=== PATIENT | female | born 1945 | race African-American/Black ===

== ENCOUNTER 2024-10-14 11:43 | Inpatient (IN) | payer OTHER ==
[2024-10-14 13:48] VITALS: BMI 21.2
[2024-10-14] MEDS: Senokot S 8.6-50 MG TAB PO PRN (15:20)
[2024-10-14] MEDS: Apixaban 5 MG TAB PO SCH (20:49)
[2024-10-14] MEDS: Bisacodyl 10 MG SUPP PR PRN (20:56)
[2024-10-14] MEDS ORDERED: Mometasone 100 MCG/PUFF (1 INHALER) INH SCH (21:00)
[2024-10-15] MEDS: [UNRECOGNIZED DRUG - OTHER] INH SCH (09:23)
[2024-10-15] MEDS: UMECLIDINIUM INH SCH (09:23)
[2024-10-15] MEDS: VILANTEROL INH SCH (09:23)
[2024-10-15] MEDS: Pantoprazole 40 MG DR.TAB PO SCH (10:34)
[2024-10-15] MEDS: Lansoprazole 3 MG/ML ORAL SUSPENSION PO SCH (10:34)
[2024-10-16] MEDS: Lansoprazole 3 MG/ML ORAL SUSPENSION PO SCH (08:42)
[2024-10-17 05:19] LABS: Hematocrit 27.7 % (36.0-47.0); Hemoglobin 8.7 g/dL (12.0-16.0); MDiff Complete? YES; Mean Corpuscular Hemoglobin 28.3 pg (27.0-31.0); Mean Corpuscular Volume 90.2 fl (78.0-98.0); Platelet Count 260 10x3/uL (130-400); Red Blood Cell (RBC) Count 3.07 mill/uL (4.20-5.40); White Blood Cell (WBC) Count 3.7 10x3/uL (4.8-10.8)
[2024-10-17 05:32] LABS: ALT (SGPT) Less than 4 U/L (Less than 34); AST (SGOT) 12 U/L (11-34); Albumin 1.9 g/dL (3.1-4.5); Alkaline Phosphatase 49 U/L (40-110); Anion Gap 13 mmol/L (10-20); BUN (Urea Nitrogen) 6 mg/dL (9.8-20.1); Bilirubin, Total 0.4 mg/dL (0.3-1.2); Calc. Creatinine Clearance 48 mL/min (70-130); Calcium 8.2 mg/dL (7.8-10.44); Carbon Dioxide 26 mmol/L (23-31); Chloride 102 mmol/L (98-107); Globulin 3.6 g/dL (2.4-3.5); Glucose 86 mg/dL (83-110); Potassium 3.7 mmol/L (3.5-5.1); Sodium 137 mmol/L (136-145)
[2024-10-19] MEDS: Acetaminophen 325 MG TAB PO PRN (17:51)
[2024-10-22] MEDS: Sulfameth/Trimethoprim DS 800-160mg TAB PO SCH (20:29)
[2024-10-24 05:34] LABS: Hematocrit 27.9 % (36.0-47.0); Hemoglobin 8.6 g/dL (12.0-16.0); MDiff Complete? YES; Mean Corpuscular Hemoglobin 28.0 pg (27.0-31.0); Mean Corpuscular Volume 90.5 fl (78.0-98.0); Platelet Count 321 10x3/uL (130-400); Red Blood Cell (RBC) Count 3.08 mill/uL (4.20-5.40); White Blood Cell (WBC) Count 3.6 10x3/uL (4.8-10.8)
[2024-10-26 08:33] VITALS: BMI 21.2
[2024-10-29] MEDS: Sulfameth/Trimethoprim DS 800-160mg TAB PO SCH (09:49)
[2024-10-30 05:14] LABS: Anion Gap 16 mmol/L (10-20); BUN (Urea Nitrogen) 10 mg/dL (9.8-20.1); Calc. Creatinine Clearance 30 mL/min (70-130); Calcium 9.1 mg/dL (7.8-10.44); Carbon Dioxide 22 mmol/L (23-31); Chloride 99 mmol/L (98-107); Glucose 87 mg/dL (83-110); Potassium 4.7 mmol/L (3.5-5.1); Sodium 132 mmol/L (136-145)
[2024-10-30 05:25] LABS: Hematocrit 29.1 % (36.0-47.0); Hemoglobin 9.2 g/dL (12.0-16.0); MDiff Complete? YES; Mean Corpuscular Hemoglobin 28.8 pg (27.0-31.0); Mean Corpuscular Volume 91.2 fl (78.0-98.0); Nucleated RBC (Manual Ct) 1 % (0); Platelet Count 378 10x3/uL (130-400); Red Blood Cell (RBC) Count 3.19 mill/uL (4.20-5.40); White Blood Cell (WBC) Count 3.1 10x3/uL (4.8-10.8)
[2024-10-30] MEDS: HYDROcodone/Acetaminophen 5/325 mg Tablet PO PRN (11:12)
[2024-10-31] MEDS: Sulfameth/Trimethoprim DS 800-160mg TAB PO SCH (20:16)
[2024-11-03 05:04] LABS: Anion Gap 15 mmol/L (10-20); BUN (Urea Nitrogen) 10 mg/dL (9.8-20.1); Calc. Creatinine Clearance 30 mL/min (70-130); Calcium 9.2 mg/dL (7.8-10.44); Carbon Dioxide 22 mmol/L (23-31); Chloride 100 mmol/L (98-107); Glucose 80 mg/dL (83-110); Potassium 4.4 mmol/L (3.5-5.1); Sodium 133 mmol/L (136-145)
[2024-11-03] MEDS: Clindamycin 150 MG CAP PO SCH (12:47)
[2024-11-03] MEDS: Apixaban 2.5 MG TAB PO SCH (20:37)
[2024-11-04] MEDS: Apixaban 5 MG TAB PO SCH (20:48)
[2024-11-06 05:39] LABS: Hematocrit 28.0 % (36.0-47.0); Hemoglobin 9.1 g/dL (12.0-16.0); Mean Corpuscular Hemoglobin 29.5 pg (27.0-31.0); Mean Corpuscular Volume 90.5 fl (78.0-98.0); Platelet Count 359 10x3/uL (130-400); Red Blood Cell (RBC) Count 3.10 mill/uL (4.20-5.40); White Blood Cell (WBC) Count 3.2 10x3/uL (4.8-10.8)
[2024-11-06 05:40] LABS: MDiff Complete? YES
[2024-11-06 16:19] VITALS: BP 109/71; TEMP 97.6
== END 2024-11-06 17:10 | disposition short-term general hospital (02) | DRG 945 ==
LOC: MADMS 13:10
PROVIDERS: ADMIT Family Medicine; ATTEND Family Medicine
PROC: F07Z5ZZ Bed Mobility Treatment (ICD-10-PCS; principal; 2024-10-15)
PROC: F08Z0ZZ Bathing/Showering Techniques Treatment (ICD-10-PCS; 2024-10-15)
DX: R53.81 Other malaise (principal); N39.0 Urinary tract infection, site not specified; I10 Essential (primary) hypertension; Z98.890 Other specified postprocedural states; J44.9 Chronic obstructive pulmonary disease, unspecified; R26.89 Other abnormalities of gait and mobility; M79.89 Other specified soft tissue disorders; N99.89 Other postprocedural complications and disorders of genitourinary system; Z97.8 Presence of other specified devices; Z96.621 Presence of right artificial elbow joint; Z79.01 Long term (current) use of anticoagulants; R33.9 Retention of urine, unspecified; Z22.322 Carrier or suspected carrier of Methicillin resistant Staphylococcus aureus; I95.2 Hypotension due to drugs; Z86.718 Personal history of other venous thrombosis and embolism
CPT/HCPCS: 36415; 80048; 80053; 85025; 86140; 87070; 87077; 87186; 87205

== ENCOUNTER 2024-11-12 15:21 | Inpatient (IN) | payer OTHER ==
[2024-11-12 20:03] VITALS: BMI 19.3
[2024-11-12] MEDS: Mometasone 100 MCG/PUFF (1 INHALER) INH SCH (20:45)
[2024-11-12] MEDS: Apixaban 2.5 MG TAB PO SCH (20:46)
[2024-11-12] MEDS: Sulfameth/Trimethoprim DS 800-160mg TAB PO SCH (21:39)
[2024-11-13 05:37] LABS: ALT (SGPT) 9 U/L (Less than 34); AST (SGOT) 20 U/L (11-34); Albumin 2.7 g/dL (3.1-4.5); Alkaline Phosphatase 54 U/L (40-110); Anion Gap 15 mmol/L (10-20); BUN (Urea Nitrogen) 14 mg/dL (9.8-20.1); Bilirubin, Total 0.2 mg/dL (0.3-1.2); Calc. Creatinine Clearance 28 mL/min (70-130); Calcium 9.2 mg/dL (7.8-10.44); Carbon Dioxide 22 mmol/L (23-31); Chloride 100 mmol/L (98-107); Globulin 3.8 g/dL (2.4-3.5); Glucose 81 mg/dL (83-110); Potassium 4.6 mmol/L (3.5-5.1); Sodium 132 mmol/L (136-145)
[2024-11-13 05:38] LABS: Hematocrit 25.7 % (36.0-47.0); Hemoglobin 8.5 g/dL (12.0-16.0); MDiff Complete? YES; Mean Corpuscular Hemoglobin 30.0 pg (27.0-31.0); Mean Corpuscular Volume 90.5 fl (78.0-98.0); Platelet Count 254 10x3/uL (130-400); Red Blood Cell (RBC) Count 2.83 mill/uL (4.20-5.40); White Blood Cell (WBC) Count 3.6 10x3/uL (4.8-10.8)
[2024-11-13 08:30] VITALS: BMI 19.3
[2024-11-13] MEDS ORDERED: Pantoprazole 40 MG DR.TAB PO SCH (09:00)
[2024-11-13] MEDS: Sulfameth/Trimethoprim DS 800-160mg TAB PO SCH (09:17)
[2024-11-13] MEDS: Apixaban 5 MG TAB PO SCH (09:18)
[2024-11-13] MEDS: Lansoprazole 3 MG/ML ORAL SUSPENSION PO SCH (09:18)
[2024-11-14] MEDS: TRELEGY ELLIPTA INH SCH (08:35)
[2024-11-15] MEDS: Acetaminophen 325 MG TAB PO PRN (20:26)
[2024-11-16] MEDS ORDERED: Senokot S 8.6-50 MG TAB PO PRN (20:53)
[2024-11-16] MEDS: Bisacodyl 10 MG SUPP PR PRN (20:59)
[2024-11-19 06:33] LABS: Hematocrit 26.8 % (36.0-47.0); Hemoglobin 8.4 g/dL (12.0-16.0); Mean Corpuscular Hemoglobin 28.6 pg (27.0-31.0); Mean Corpuscular Volume 90.9 fl (78.0-98.0); Platelet Count 301 10x3/uL (130-400); Red Blood Cell (RBC) Count 2.95 mill/uL (4.20-5.40); White Blood Cell (WBC) Count 3.2 10x3/uL (4.8-10.8)
[2024-11-19 06:43] LABS: Anion Gap 15 mmol/L (10-20); BUN (Urea Nitrogen) 11 mg/dL (9.8-20.1); Calc. Creatinine Clearance 26 mL/min (70-130); Calcium 9.2 mg/dL (7.8-10.44); Carbon Dioxide 21 mmol/L (23-31); Chloride 101 mmol/L (98-107); Glucose 78 mg/dL (83-110); Potassium 4.8 mmol/L (3.5-5.1); Sodium 132 mmol/L (136-145)
[2024-11-19] MEDS: Sodium Bicarbonate Tab 325 MG TAB PO SCH (20:16)
[2024-11-20] MEDS: Ferrous Gluconate 324 MG TAB PO SCH (08:22)
[2024-11-20] MEDS ORDERED: Senokot S 8.6-50 MG TAB PO PRN (14:08)
[2024-11-20] MEDS ORDERED: Milk Of Magnesia 30 ML UDCUP PO PRN (14:09)
[2024-11-20] MEDS: Apixaban 5 MG TAB PO SCH (20:15)
[2024-11-21] MEDS: Magnesium Oxide 400 MG TAB PO SCH (08:23)
[2024-11-22 05:36] LABS: Anion Gap 16 mmol/L (10-20); BUN (Urea Nitrogen) 13 mg/dL (9.8-20.1); Calc. Creatinine Clearance 23 mL/min (70-130); Calcium 9.3 mg/dL (7.8-10.44); Carbon Dioxide 22 mmol/L (23-31); Chloride 98 mmol/L (98-107); Glucose 80 mg/dL (83-110); Potassium 4.6 mmol/L (3.5-5.1); Sodium 131 mmol/L (136-145)
[2024-11-22] MEDS ORDERED: Ferrous Sulfate 325 MG TAB PO SCH (11:00)
[2024-11-22] MEDS: Ferrous Sulfate 300 MG (5 mL) UDCUP PO SCH (11:50)
[2024-11-22 13:57] LABS: Iron 31 ug/dL (50-170); Iron Binding Capacity, Total 199 mcg/dL (265-497)
[2024-11-23] MEDS ORDERED: Ferrous Sulfate 325 MG TAB PO SCH (08:00)
[2024-11-23] MEDS: Ferrous Sulfate 300 MG (5 mL) UDCUP PO SCH (09:02)
[2024-11-24 11:59] VITALS: BP 125/69
[2024-11-24 13:01] VITALS: TEMP 98
== END 2024-11-24 13:01 | disposition home health service (06) | DRG 945 ==
LOC: MADMS 18:19
PROVIDERS: ADMIT Family Medicine; ATTEND Family Medicine
PROC: F07Z9ZZ Gait Training/Functional Ambulation Treatment (ICD-10-PCS; principal; 2024-11-12)
DX: R53.1 Weakness (principal); E87.1 Hypo-osmolality and hyponatremia; G90.50 Complex regional pain syndrome I, unspecified; R26.89 Other abnormalities of gait and mobility; Z96.621 Presence of right artificial elbow joint; D63.1 Anemia in chronic kidney disease; I12.9 Hypertensive chronic kidney disease with stage 1 through stage 4 chronic kidney disease, or unspecified chronic kidney disease; N18.30 Chronic kidney disease, stage 3 unspecified; R33.9 Retention of urine, unspecified; M79.89 Other specified soft tissue disorders; J44.9 Chronic obstructive pulmonary disease, unspecified; Z86.718 Personal history of other venous thrombosis and embolism; Z79.01 Long term (current) use of anticoagulants; Z87.81 Personal history of (healed) traumatic fracture; Z98.890 Other specified postprocedural states; Z88.8 Allergy status to other drugs, medicaments and biological substances; Z78.9 Other specified health status; Z22.322 Carrier or suspected carrier of Methicillin resistant Staphylococcus aureus; Z97.8 Presence of other specified devices; Z79.899 Other long term (current) drug therapy
CPT/HCPCS: 36415; 80048; 80053; 83540; 83550; 85025; 85027; 94640; Q0162

== ENCOUNTER 2025-02-08 16:59 | Emergency (ER) | payer MEDICARE, OTHER ==
[2025-02-08 17:53] LABS: Hematocrit 32.5 % (36.0-47.0); Hemoglobin 10.0 g/dL (12.0-16.0); MDiff Complete? YES; Mean Corpuscular Hemoglobin 28.8 pg (27.0-31.0); Mean Corpuscular Volume 93.8 fl (78.0-98.0); Platelet Adequacy Comment Appears Adequate; Platelet Count 277 10x3/uL (130-400); Red Blood Cell (RBC) Count 3.46 mill/uL (4.20-5.40); White Blood Cell (WBC) Count 3.7 10x3/uL (4.8-10.8)
[2025-02-08 17:59] LABS: ALT (SGPT) Less than 4 U/L (Less than 34); AST (SGOT) 18 U/L (11-34); Albumin 3.4 g/dL (3.1-4.5); Alkaline Phosphatase 51 U/L (40-110); Anion Gap 13 mmol/L (10-20); BUN (Urea Nitrogen) 15 mg/dL (9.8-20.1); Bilirubin, Total 0.2 mg/dL (0.3-1.2); Calc. Creatinine Clearance 0 mL/min (70-130); Calcium 8.8 mg/dL (7.8-10.44); Carbon Dioxide 20 mmol/L (23-31); Chloride 102 mmol/L (98-107); Globulin 3.7 g/dL (2.4-3.5); Glucose 77 mg/dL (83-110); Potassium 4.3 mmol/L (3.5-5.1); Sodium 131 mmol/L (136-145)
[2025-02-08 20:03] LABS: Anion Gap 14 mmol/L (10-20); BUN (Urea Nitrogen) 14 mg/dL (9.8-20.1); Calc. Creatinine Clearance 0 mL/min (70-130); Calcium 8.6 mg/dL (7.8-10.44); Carbon Dioxide 18 mmol/L (23-31); Chloride 104 mmol/L (98-107); Glucose 86 mg/dL (83-110); Potassium 4.2 mmol/L (3.5-5.1); Sodium 132 mmol/L (136-145)
== END 2025-02-08 21:22 | disposition home or self-care (01) ==
LOC: MADERS 16:59
DX: N17.9 Acute kidney failure, unspecified (principal); E86.0 Dehydration; I10 Essential (primary) hypertension; J44.9 Chronic obstructive pulmonary disease, unspecified; Z79.899 Other long term (current) drug therapy; Z79.51 Long term (current) use of inhaled steroids
CPT/HCPCS: 36415; 80053; 85025; 96360; J7030

== ENCOUNTER 2025-02-11 20:16 | Inpatient (IN) | payer OTHER ==
[2025-02-11 21:41] LABS: Hematocrit 31.1 % (36.0-47.0); Hemoglobin 9.7 g/dL (12.0-16.0); MDiff Complete? YES; Mean Corpuscular Hemoglobin 29.0 pg (27.0-31.0); Mean Corpuscular Volume 93.2 fl (78.0-98.0); Platelet Count 270 10x3/uL (130-400); Red Blood Cell (RBC) Count 3.33 mill/uL (4.20-5.40); White Blood Cell (WBC) Count 4.4 10x3/uL (4.8-10.8)
[2025-02-11 21:53] LABS: ALT (SGPT) 58 U/L (Less than 34); AST (SGOT) 189 U/L (11-34); Albumin 3.1 g/dL (3.1-4.5); Alkaline Phosphatase 98 U/L (40-110); Anion Gap 17 mmol/L (10-20); BUN (Urea Nitrogen) 16 mg/dL (9.8-20.1); Bilirubin, Total 0.5 mg/dL (0.3-1.2); CK (CPK) 36 U/L (29-168); Calc. Creatinine Clearance 0 mL/min (70-130); Calcium 8.8 mg/dL (7.8-10.44); Carbon Dioxide 20 mmol/L (23-31); Chloride 100 mmol/L (98-107); Globulin 4.0 g/dL (2.4-3.5); Glucose 108 mg/dL (83-110); Magnesium 1.5 mg/dL (1.6-2.6); Potassium 4.6 mmol/L (3.5-5.1); Sodium 132 mmol/L (136-145)
[2025-02-11 21:54] LABS: Troponin I Less than 0.010 ng/mL (< 0.028)
[2025-02-11 22:36] LABS: Glucose, Urine (Dipstick) Negative (Negative); Leukocyte Large (Negative); Protein, Urine (Dipstick) 30 mg/dL (Neg-Trace); Specific Gravity, Urine 1.020 (1.005-1.030)
[2025-02-11 22:44] LABS: Bacteria/HPF 2+ HPF (None Seen); CAUTI Indications for Culture Alt mental st,lethar; RBC/HPF 21-50 HPF (0-3); Urine Culture Reflex Yes Yes; WBC/HPF Greater than 50 HPF (0-3)
[2025-02-12 08:35] LABS: Troponin I Less than 0.010 ng/mL (< 0.028)
[2025-02-12] MEDS ORDERED: Bisacodyl 10 MG SUPP PR PRN (21:27)
[2025-02-12] MEDS: Apixaban 2.5 MG TAB PO SCH (21:27)
[2025-02-12] MEDS ORDERED: Senokot S 8.6-50 MG TAB PO PRN (21:27)
[2025-02-12] MEDS ORDERED: Acetaminophen 325 MG TAB PO PRN (21:27)
[2025-02-12] MEDS: Magnesium 2 GM/50 ML BAG (IN WATER) ONE (21:44)
[2025-02-12 22:25] VITALS: BMI 18.8
[2025-02-13 07:09] VITALS: BP 107/59; TEMP 98.3
[2025-02-13 09:19] VITALS: BMI 18.8
[2025-02-13] MEDS: Apixaban 5 MG TAB PO SCH (09:21)
[2025-02-13] MEDS: Fluticasone/Umeclidin/Vilanter [Trelegy Ellipta 100-62.5-25] INH SCH (09:22)
[2025-02-13] MEDS ORDERED: Sulfameth/Trimethoprim DS 800-160mg TAB PO SCH (21:00)
== END 2025-02-13 18:28 | disposition swing bed (61) | DRG 690 ==
LOC: MADERS 20:16 → MADMS 02-12 18:22
PROVIDERS: ADMIT Family Medicine; ATTEND Family Medicine
DX: N39.0 Urinary tract infection, site not specified (principal); Z68.1 Body mass index [BMI] 19.9 or less, adult; R53.81 Other malaise; I10 Essential (primary) hypertension; J44.9 Chronic obstructive pulmonary disease, unspecified; E86.0 Dehydration; E03.9 Hypothyroidism, unspecified; R63.4 Abnormal weight loss; E83.42 Hypomagnesemia; D64.9 Anemia, unspecified; J40 Bronchitis, not specified as acute or chronic; Z98.890 Other specified postprocedural states; Z79.890 Hormone replacement therapy; Z86.718 Personal history of other venous thrombosis and embolism; Z79.82 Long term (current) use of aspirin; Z79.01 Long term (current) use of anticoagulants
CPT/HCPCS: 71045; 71250; 74177; 80053; 81001; 82550; 83605; 83735; 83880; 84484; 85025; 85379; 87040; 87077; 87086; 87186; 87428; 93005; 96361; 96365; 96366; 96367; J0692; J2919; J3475; J7030; J7120